=== PATIENT | male | born 2000 | race Caucasian/White ===

== ENCOUNTER 2021-11-29 17:25 | Emergency (ER) | payer BC ==
[~2021-11-29] VITALS: Ht 172.7 cm; Wt 63.5 kg
[2021-11-29 17:29] VITALS: BP_SYST 100
--- NOTE | 2021-11-29 17:34 | NUR ---
Triaged pt and pt waiting on ambulance gurney until bed becomes available.
--- NOTE | 2021-11-29 18:00 | NUR ---
ER at bedside examining patient.
[2021-11-29 18:41] VITALS: BP_SYST 134
--- NOTE | 2021-11-29 18:42 | NUR ---
Patient given written and verbal discharge instructions and verbalizes understanding. ER MD discussed with patient the results and treatment provided. Patient in stable condition. ID arm band removed. Patient educated on pain management and to follow up with PMD. Pain Scale 0/10. Opportunity for questions provided and answered. Medication side effect fact sheet provided.
== END 2021-11-29 18:41 | disposition home or self-care (01) ==
LOC: SED 17:25
DX: T40.1X1A Poisoning by heroin, accidental (unintentional), initial encounter (principal); Z79.899 Other long term (current) drug therapy; Y92.89 Other specified places as the place of occurrence of the external cause
CPT/HCPCS: 99281